=== PATIENT | female | born 2000 | race Caucasian/White ===

== ENCOUNTER 2021-02-12 16:42 | Emergency (ER) | payer OTHER ==
[~2021-02-12] VITALS: Ht 149.9 cm; Wt 95.3 kg
[2021-02-12 17:16] VITALS: BP_SYST 132
--- NOTE | 2021-02-12 17:16 | NUR ---
Patient triaged and placed in waiting room. VSS and patient appears in no acute distress at this time. Accompanied by MOTHER, awaiting available bed, and MD notified of need for MSE.
--- NOTE | 2021-02-12 17:50 | NUR ---
Pt to bed 7 with mother.
--- NOTE | 2021-02-12 17:57 | NUR ---
Dr. Marcus at bedside to assess.
--- NOTE | 2021-02-12 18:00 | NUR ---
RECEIVED PATIENT IN BED STABLE, NAD, VSS, CALM, APPROPRIATE, AND COOPERATIVE. PT AWAITING ADDITIONAL ASSESSMENT AND DISPOSITION WITH PLAN OF CARE.
[2021-02-12] MEDS ORDERED: LORazepam 1 MG TABLET PO ONE (18:15)
--- NOTE | 2021-02-12 18:34 | NUR ---
Pt moved to hallway bed.
--- NOTE | 2021-02-12 19:12 | NUR ---
md at bedside discussing results with the patient
[2021-02-12] MEDS ORDERED: IBUPROFEN 400 MG TABLET PO ONE (19:30)
[2021-02-12 19:35] VITALS: BP_SYST 126
--- NOTE | 2021-02-12 19:35 | NUR ---
Patient given written and verbal discharge instructions and verbalizes understanding. ER MD discussed with patient the results and treatment provided. Patient in stable condition. ID arm band removed. No IV No Rx given. Patient educated on pain management and to follow up with PMD. Pain Scale 0/10. Opportunity for questions provided and answered. Medication side effect fact sheet provided.
== END 2021-02-12 19:35 | disposition home or self-care (01) ==
LOC: SED 16:42
DX: R51.9 Headache, unspecified (principal); F41.9 Anxiety disorder, unspecified; Z88.2 Allergy status to sulfonamides
CPT/HCPCS: 70450-TC; 76376; 99284